=== PATIENT | male | born 1955 | race Caucasian/White ===

== ENCOUNTER 2018-01-08 23:42 | Emergency (ER) | payer OTHER ==
[~2018-01-08] VITALS: Ht 162.6 cm; Wt 71.6 kg
[2018-01-09 00:14] VITALS: BP 143/89; PULSE 59; RESP 18; TEMP 98.5; O2SAT 97
[2018-01-09 03:28] VITALS: BP 154/97; PULSE 82; RESP 18; O2SAT 97
[2018-01-09 03:45] LABS: BILIRUBIN, URINE NEG (NEG); BLOOD, URINE MOD (NEG); GLUCOSE,URINE NEG (NEG); KETONE, URINE NEG (NEG); NITRITE,URINE POS (NEG); PH, URINE 5.5 (5.0-8.5); URINE LEUKOCYTE ESTERASE SMALL (NEG)
[2018-01-09 03:46] LABS: URINE COLOR ORANGE (YELLW/STRAW)
[2018-01-09 03:49] LABS: SQUAMOUS EPITHELIAL CELL URINE 0-5 /hpf (0-5)
--- NOTE | 2018-01-09 04:08 | PD ---
HPI Chief Complaint: Complaint Time Seen by Provider: 03:36 Travel History International Travel<30 days: No Contact w/Intl Traveler<30days: No Traveled to known affect area: No History of Present Illness HPI 62-year-old male presents to the emergency department for complaint of urinary frequency and urgency. Patient is also noted dysuria. Patient denies fever chills. Patient takes no medications on a regular basis. Patient denies diabetes. Patient has been using [id number] Azo-Standard at the recommendation of his . Symptoms 1 day. No prior history of urinary retention, UTI, or known prostate disease. [facility] Past Medical History Narrative Medical Ventral hernia; no surgery; no tobacco use; nursing notes reviewed Medical History: Denies Significant Hx Tetanus Vaccination: < 5 Years Influenza Vaccination: Yes Past Surgical History Surgical History: No Previous Surgery Social History Alcohol Use: No Tobacco Use: No Substance Use: No Allergies-Medications (Allergen,Severity, Reaction): Coded Allergies: No Known Allergies (Unverified , 01/09/18) Reported Meds & Prescriptions Reported Meds & Active Scripts Active No Active Prescriptions or Reported Medications Review of Systems Except as stated in HPI: all other systems reviewed are Neg Physical Exam Narrative GENERAL: Well-developed well-nourished male no acute distress no respiratory distress SKIN: Warm and dry. HEAD: Normocephalic. EYES: No scleral icterus. No injection or drainage. NECK: Supple, trachea midline. No JVD or lymphadenopathy. CARDIOVASCULAR: Regular rate and rhythm without murmurs, gallops, or rubs. RESPIRATORY: Breath sounds equal bilaterally. No accessory muscle use. GASTROINTESTINAL: Abdomen soft, non-tender, readily reducible small supraumbilical midline hernia, nondistended. : MUSCULOSKELETAL: No cyanosis, or edema. BACK: Nontender without obvious deformity. No CVA tenderness. Data Data Last Documented VS Vital Signs Date Time Temp Pulse Resp B/P (MAP) Pulse Ox O2 Delivery O2 Flow Rate FiO2 01/09/18 03:28 82 18 154/97 (116) 97 Room Air 01/09/18 00:14 98.5 Orders Orders Urinalysis - C+S If Indicated (01/09/18 03:36) Urine Culture (01/09/18 03:40) Lidocaine 2% Jelly (Xylocaine 2% Jelly) (01/09/18 04:15) Urinary Catheter Insert/Apply (01/09/18 04:04) Ed Discharge Order (01/09/18 04:42) Bag, Leg 32oz Sterile Large Ea (01/09/18 04:42) Nitrofurantoin Monohyd Macrocr (Macrobid (01/09/18 04:45) Labs Laboratory Tests Test 01/09/18 03:40 Urine Color ORANGE Urine Turbidity CLEAR Urine pH 5.5 Urine Specific [place] 1.020 Urine Protein NEG mg/dL Urine Glucose (UA) NEG mg/dL Urine Ketones NEG mg/dL Urine Occult Blood MOD Urine Nitrite POS Urine Bilirubin NEG Urine Urobilinogen 0.2 MG/DL Urine Leukocyte Esterase SMALL Urine RBC 3-5 /hpf Urine WBC 3-5 /hpf Urine Squamous Epithelial Cells 0-5 /hpf Urine Bacteria NONE /hpf Microscopic Urinalysis Comment CULTURE INDICATED MDM Medical Decision Making Medical Screen Exam Complete: Yes Emergency Medical Condition: Yes Medical Record Reviewed: Yes Differential Diagnosis Dysuria, UTI, urinary retention, renal insufficiency Narrative Course Urinary specimen collected and sent for resulting; bladder scan shows post void 750 cc UA and retention is discussed with patient with spouse at bedside with recommendation for urinary catheter for urinary retention. Urinalysis shows positive nitrates cultures indicated. After urinary catheter placement patient UOP 1 liter, catheter clamped; leg bag applied Patient given first dose of oral antibiotic Macrobid 100 mg; urine culture and sensitivity ordered Patient stable for outpatient management and follow-up with urologist Diagnosis Primary Impression: Urinary retention Additional Impression: UTI (urinary tract infection) Referrals: Urologist call for appointment Environmental Health And Safety Manager Urologist: Dr Elizabeth Morillo Patient Instructions: General Instructions Additional Instructions: Increase fluid hydration Complete course of antibiotic as prescribed Follow-up with urologist; on-call urologist: Dr Elizabeth Morillo Return to the emergency department for any concerns or change in condition Monitor temperature every 4 hours with thermometer and take as needed acetaminophen/Tylenol every 4 hours for fever 100.4F or greater Follow-up with your primary care provider Med/Other Pt SpecificInfo: Prescription(s) given Scripts Nitrofurantoin Monohydrate Macrocrystals (Macrobid) 100 Mg Cap 100 MG PO BID for Infection, #7 CAP 0 Refills Prov: Margarette Padilla MD 01/09/18 Disposition: 01 DISCHARGE HOME Condition: Stable Margarette Padilla MD Jan 09, 2018 04:08
[2018-01-09] MEDS ORDERED: LIDOCAINE HCL 2% JELLY 5 ML SYRINGE TOPICAL ONE (04:15)
[2018-01-09] MEDS ORDERED: NITROFURANTOIN MONOHYD MACROCR 100 MG CAP PO ONE (04:45)
[2018-01-09] MEDS ORDERED: MACR100C2 PO (04:46)
[2018-01-09 05:06] VITALS: BP 135/76
== END 2018-01-09 05:18 | disposition home or self-care (01) ==
LOC: PHED 23:42
DX: R33.9 Retention of urine, unspecified (principal); N39.0 Urinary tract infection, site not specified
CPT/HCPCS: 51702; 51798; 81001; 87086; 99283

== ENCOUNTER 2018-09-09 07:33 | Observation (INO) ==
[~2018-09-09 07:33] MED LIST: Bupivacaine/Epinephrine Inj 0.25% 50 ML Vial ONE
[2018-09-09] MEDS ORDERED: Metoprolol Tartrate 25 MG Tablet PO SCH (07:53)
[2018-09-09] MEDS ORDERED: Chlorhexidine Gluconate 2% 1 Pack (2 Cloths) TOPICAL SCH (07:53)
[2018-09-09] MEDS ORDERED: Sodium Chlor 0.9% Inj 500 ML IV.SIG SCH (08:00)
[2018-09-09] MEDS ORDERED: ceFAZolin 1 GM Premix Inj 1 GM/50 ML FROZ.PIGGY IV.SIG SCH (08:00)
[2018-09-09] MEDS ORDERED: Vancomycin Inj 1,000 MG in Sodium Chlor 0.9% Inj 250 ML IV.SIG SCH (08:00)
[2018-09-09] MEDS ORDERED: Neostigmine Inj 5 MG/5 ML Syringe IV.PUSH ONE (09:33)
[2018-09-09] MEDS ORDERED: Ketorolac Inj 30 MG/ML (IVP) Vial IV.PUSH ONE (09:33)
[2018-09-09] MEDS ORDERED: Lidocaine PF 1% Inj 5 ML Syringe OTHER ONE (09:33)
[2018-09-09] MEDS ORDERED: Glycopyrrolate Inj 1 MG/5 ML Syringe IV.PUSH ONE (09:33)
[2018-09-09] MEDS ORDERED: Bupivacaine Liposomal PF 1.3% Inj 20 ML Vial ONE (09:41)
[2018-09-09] MEDS ORDERED: *Meperidine Inj 25 MG/ML Vial PERIprocedural Use ONLY ONE (12:02)
[2018-09-09] MEDS ORDERED: Promethazine 25 MG Supp RECTAL PRN (12:06)
[2018-09-09] MEDS ORDERED: Post-op Orders (for Pharmacy) OTHER ONE (12:06)
[2018-09-09] MEDS ORDERED: Bisacodyl 10 MG Supp RECTAL PRN (12:06)
--- NOTE | 2018-09-09 12:06 | P.OP ---
- Preoperative Diagnosis (1) Ventral hernia without obstruction or gangrene - Postoperative Diagnosis (1) Ventral hernia without obstruction or gangrene Date of procedure: 09/09/18 Procedure: Laparoscopic ventral hernia repair with [place]-Stephen DualMesh 15 x 19 cm Anesthesia: REED Surgeon: Fran Soto MD Alligator Shear Operator: Arely LAURA Estimated blood loss (mL): 10 IV fluids (mL): 1,200 Pathology: other (Pre-peritoneal fat to pathology for gross) Operation and Findings: Patient was taken to the operating room and placed on the operating table in the supine position. After an adequate level of general endotracheal anesthesia was achieved, the abdomen was prepped. Anesthesia placed a tap block. The abdomen was then shaved reprepped and draped. Time-out was taken, confirming the correct patient, site, and procedure to be performed. Skin and subcutaneous tissue was infiltrated with local anesthetic and a transverse incision was made in the left upper quadrant and carried through the fascia sharply. The muscles were and the peritoneal cavity entered uneventfully. A 12 mm balloon trocar was inserted and the balloon inflated. The abdomen was insufflated. A 5 mm 30 degree laparoscope was inserted. The patient was noted to have adhesions to the hernia but these appeared to be exclusively omental tissue. A second trocar (5 mm) was placed in the left lower quadrant. The 5 mm trocar entered the abdominal cavity under direct vision uneventfully. Harmonic scalpel was then used to take the omental tissue down. A second 5 mm trocar was placed in the right lower quadrant and used to grasp the omental tissue and retract it downward. When the hernia was completely reduced, the falciform ligament was taken down part way. The patient was noted to have a fair amount of preperitoneal fatty tissue on the anterior abdominal wall and it was felt that this would place the patient at risk for hernia recurrence. This was taken down off the anterior abdominal wall with the harmonic scalpel. This was placed into an Endo Catch device and removed via the left upper quadrant 12 mm trocar site and passed off the table for gross pathology. The abdomen was then reexamined. A right upper quadrant 5 mm trocar was then placed. The defect was measured to be approximately 5 x 5 cm. A 15 x 19 cm [place]-Stephen DualMesh was chosen and trimmed down to fit the defect. As the defect was quite small, it was felt that utilizing V lock suture would not add much, and the patient's risk for seroma postoperatively would be minimal. The mesh had 4 [place] 0 sutures placed and the mesh was then rolled up and placed into the abdominal cavity. The mesh was unfurled and then the 4 sutures were utilized to secure the mesh top and bottom and on both sides laterally. They Capsure tacker was then used to fix the mesh around the circumference. For additional [place] 0 sutures were placed in between the previously placed 4 sutures to further secure the mesh and minimize slippage. When this was completed, and with hemostasis assured, insufflation was discontinued. The 5 mm trocars were removed under direct vision. The 12 mm trocar was removed and the fascia closed in 2 layers with 0 Vicryl suture in both [id number] and simple interrupted fashion. The skin was closed at all of the trocar sites with 4-0 Vicryl in an interrupted buried fashion. All trocar sites and suture sites were dressed with Steri-Strips. Sponge and needle counts were reported to be correct. The patient was extubated and taken back to the recovery room in stable condition. He tolerated the procedure well.
[2018-09-09] MEDS ORDERED: Morphine Inj 4 MG/ML Vial IV.PUSH PRN (12:30)
[2018-09-09] MEDS ORDERED: fentaNYL Citrate Inj 100 MCG/2 ML Ampul ONE (12:46)
--- NOTE | 2018-09-09 13:20 | ECG ---
Date Performed: 09/09/2018 Time Performed: 08:07:16 PTAGE: 63 years EKG: SINUS BRADYCARDIA POSSIBLE INFERIOR MYOCARDIAL INFARCTION , PROBABLY OLD BORDERLINE ECG Sin ce the PREVIOUS TRACING , no significant change noted PREVIOUS TRACIN02/11/1997 09.02 DOCTOR: Arely Craig Interpretating Date/Time 09/09/2018 13:18:38
[2018-09-09] MEDS: Senna/Docusate Sodium 8.6/50 MG Tablet PO SCH (20:02)
[2018-09-10] MEDS: Senna/Docusate Sodium 8.6/50 MG Tablet PO SCH (08:16)
--- NOTE | 2018-09-10 11:13 | P.DS ---
Date of admission: 09/09/18 12:44 Primary care physician: Taj Graham MD Attending physician on discharge: Fran Soto Brief History from admission: 63 year old male POD1 Laparoscopic ventral hernia repair with [place]-Stephen DualMesh 15 x 19 cm DS: Medications - Discharge Medications Prescriptions: hydrocodone-acetaminophen [[place]] 1 tab PO Q4H #25 tab DS: Summary Hospital Course: This is a 63 year old male POD1 Laparoscopic ventral hernia repair with [place]- Stephen DualMesh 15 x 19 cm. He is able to tolerate a regular diet. The patient's pain is controlled using oral pain medications. He was advised to keep the binder in place unless showering. He was also advised to avoid any heavy pushing/pulling/lifting. He will follow up in the office. - Time Spent with Patient Total time spent providing and/or coordinating discharge services: Less than 30 minutes - Quality: VTE Deep Vein Thrombosis/Pulmonary Embolism Present on Admission: No Exam Vital signs: Vital Signs 09/09/18 11:59 09/09/18 12:15 09/09/18 12:30 Temperature 97.6 F Pulse Rate 88 63 64 Respiratory Rate 17 16 20 Blood Pressure 119/64 116/65 117/69 Pulse Oximetry 93 L 98 95 09/09/18 13:00 09/09/18 14:00 09/09/18 14:20 Temperature 98.4 F Pulse Rate 55 L 59 L 57 L Respiratory Rate 21 20 20 Blood Pressure 109/69 109/64 110/66 Pulse Oximetry 95 94 L 94 L 09/09/18 16:00 09/09/18 20:00 09/10/18 00:00 Temperature 98.4 F 97.4 F L 98.4 F Pulse Rate 75 68 70 Respiratory Rate 19 18 19 Blood Pressure 115/70 112/67 104/59 L Pulse Oximetry 96 94 L 95 09/10/18 08:00 Temperature 98.0 F Pulse Rate 64 Respiratory Rate 17 Blood Pressure 122/76 Pulse Oximetry 94 L Intake & Output 09/09/18 09/10/18 09/10/18 18:59 06:59 18:59 Intake Total 2320 / 2320 900 / 900 Output Total 10 / 10 200 / 200 Balance 2310 / 2310 700 / 700 Weight 67.5 kg 68.8 kg Intake: IV 1400 / 1400 Ofirmev Inj 1,000 mg In 100 ml 100 / 100 @ 400 mls/hr IV.SIG BUILDING [employer]ODIAL SUPERVISOR [facility] Rx#:[id number] LR 1000 mL Inj 1,000 ML @ 30 1000 / 1000 mls/hr IV.SIG .Q24H [facility] Rx#: [id number] Vancomycin Inj 1,000 MG In NS 250 / 250 Inj 250 ML @ 250 mls/hr IV.SIG BUILDING [employer]ODIAL SUPERVISOR [facility] Rx#:[id number] Ancef 1 GM Premix Inj 1 gm In 50 / 50 50 ml @ 100 mls/hr IV.SIG BUILDING CUSTODIAL SUPER[employer]OR [facility] Rx#:[id number] Oral 720 / 720 900 / 900 Anesthesia Amount 200 / 200 Output: Urine 200 / 200 Estimated Blood Loss Other: # Voids 2 2 Date of Last Bowel Movement 09/09/18 Weight On Admission 67.5 kg Narrative: Alert and awake Abd: lap sites c/d/i with Steri strips; binder in place; abdomen soft; minimally tender to palpation Results Procedures completed during hospitalization: Laparoscopic ventral hernia repair with [place]-Stephen DualMesh 15 x 19 cm Pending studies at discharge: Pending at discharge 09/09/18 13:39 Surgical [PTH] Routine Discharge Plan - Discharge Disposition Patient Disposition: 01 Discharge Home - Discharge Condition Condition: Good - Discharge Order Discharge Orders: Discharge Order (Routine); Ordered 09/10/18 Ordered By: Tamara Campos - Discharge Details Anticipated Discharge Date: 09/10/18 Discharge Comment: rx on chart - Physicians Team Primary Care Provider: Taj Graham Attending Provider: Fran Soto - Rxs /Orders / Referrals /Forms Prescriptions: New hydrocodone-acetaminophen [[place]] 5-325 mg Tablet 1 tab PO Q4H Qty: 25 RF: 0 Continue tamsulosin [Flomax] 0.4 mg Capsule 0.4 mg PO DAILY Referrals: Taj Graham MD [Primary Care Provider] - See Instructions Fran Soto MD [GENERAL SURGERY] - See Instructions (Appt set for Sep 18 at 10:50AM) - Discharge Instructions Patient Printed Instructions: Steristrips (ED), Ventral Hernia Repair (DC)
== END 2018-09-10 11:59 | disposition home or self-care (01) ==
LOC: HSDC 07:33 → HSDI 07:33 → N07 14:35
PROVIDERS: ADMIT Surgery Trauma Surgery; ATTEND Surgery Trauma Surgery